=== PATIENT | female | born 1950 | race Asian ===

== ENCOUNTER → 2018-01-11 | Outpatient (CLI) | payer MEDICARE | END | disposition home or self-care (01) | LOC: EDSTATUS 01-10 11:00 → CVU 15:53 | PROVIDERS: ATTEND Internal Medicine | DX: R00.2 Palpitations (principal); R06.02 Shortness of breath | CPT/HCPCS: 93306 ==

== ENCOUNTER → 2018-07-12 | Outpatient (CLI) | payer MEDICARE ==
[~2018-07-12] MED LIST: REGADENOSON 0.4 MG/5 ML SYRINGE ONE
== END | disposition home or self-care (01) ==
LOC: CFH 11:52
PROVIDERS: ATTEND Internal Medicine Cardiovascular Disease
DX: Z12.31 Encounter for screening mammogram for malignant neoplasm of breast (principal); R07.89 Other chest pain; R06.02 Shortness of breath
CPT/HCPCS: 77067; 78452; 93017; A9502; J2785

== ENCOUNTER 2018-11-07 09:48 | Outpatient (CLI) | payer MEDICARE | END 2018-11-07 23:59 | disposition home or self-care (01) | LOC: CFH 09:48 | PROVIDERS: ATTEND Nurse Practitioner | DX: M81.0 Age-related osteoporosis without current pathological fracture (principal); N95.8 Other specified menopausal and perimenopausal disorders | CPT/HCPCS: 77080 ==